=== PATIENT | female | born 1995 | race Caucasian/White ===

== ENCOUNTER 2023-01-21 09:13 | Outpatient (OUT) | payer BC, SELFPAY | END 2023-01-21 09:14 | disposition home or self-care (01) | LOC: US 09:13 | PROVIDERS: Visit Provider Obstetrics & Gynecology | DX: Z53.8 Procedure and treatment not carried out for other reasons (principal) ==

== ENCOUNTER 2023-02-10 10:41 | Outpatient (OUT) | payer BC, SELFPAY ==
[2023-02-10 11:25] LABS: Basophils Percent Auto 0.2 % (0.2-2.0); Eosinophils Absolute Auto 0.1 10^3/uL (0.0-0.7); Eosinophils Percent Auto 0.7 % (0.9-7.0); Hemoglobin 12.3 g/dL (12.0-16.0); Immature Granulocytes Abs Auto 0.06 10^3/uL (0.00-0.03); Immature Granulocytes Pct Auto 0.6 % (0.0-0.5); Lymphocytes Absolute Auto 1.8 10^3/uL (1.2-3.8); Lymphocytes Percent Auto 17.6 % (20.5-60.0); Mean Corpuscular HGB Conc 34.2 g/dL (29.9-35.2); Mean Corpuscular Hemoglobin 29.6 pg (26.7-34.0); Mean Corpuscular Volume 86.7 fL (81.0-99.0); Mean Platelet Volume 8.9 fL (9.5-13.5); Monocytes Absolute Auto 0.8 10^3/uL (0.3-0.8); Monocytes Percent Auto 7.9 % (1.7-12.0); Neutrophils Absolute Auto 7.3 10^3/uL (1.4-6.5); Platelet Count 334 10^3/uL (150-450); Red Blood Count 4.15 10^6/uL (4.20-5.40); Red Cell Distribution Width 12.8 % (11.0-15.0)
[2023-02-10 11:49] LABS: Thyroid Stimulating Hormone 0.974 uIU/mL (0.358-3.740)
[2023-02-10 11:51] LABS: Estimated Average Glucose 100 mg/dL; Glycohemoglobin A1C 5.1 % (4.5-6.2)
[2023-02-11 06:09] LABS: HBsAg Screen Negative (Negative); HCV Ab Non Reactive (Non Reactive); HIV Ab/p24 Ag Screen Non Reactive (Non Reactive); Rubella Antibodies, IgG 5.94 index (Immune >0.99)
[2023-02-11 12:10] LABS: Rapid Plasma Reagin, Quant Non Reactive titer (NonRea<1:1)
== END 2023-02-10 10:42 | disposition home or self-care (01) ==
PROVIDERS: Visit Provider Obstetrics & Gynecology
DX: N91.2 Amenorrhea, unspecified (principal)
CPT/HCPCS: 36415; 83036; 84443; 85025; 86592; 86762; 86803; 86850; 86900; 86901; 87340; 87389

== ENCOUNTER 2023-03-10 11:37 | Outpatient (OUT) | payer BC, SELFPAY ==
--- NOTE | 2023-03-10 11:39 | US_ITS ---
[address] [address] Patient Name: TELLY GARY MRN: [id number] date: 1995 Sex: F Assigned Patient Location: US Current Patient Location: Accession/Order Number: [id number] Exam Date: 03/10/2023 11:39 Report Date: 03/10/2023 15:22 At the request of: LUKE ESTRADA Procedure: US OB >= 14 weeks Fetus EXAMINATION: US OB >= 14 weeks Fetus HISTORY: MISSED MENSES COMPARISON: No relevant comparison available. FINDINGS: Heart Rate: 167.0 bpm Number: 1.0 Position: Variable Amniotic Fluid Volume: Subjectively normal BIOMETRY: BPD: 3.5 cm cm; 16 weeks 6 days HC: 12.9 cmcm; 16 weeks 4 days AC: 10.6 cm cm; 16 weeks 4 days FL: 2.1 cm cm; 16 weeks 1 days EFW: 155.2 grams FL/AC: 19.6 FL/BPD: 59.3 HC/AC: 1.2 GESTATIONAL AGE: Age by EDC: Unknown LMP ANISA by EDC: Age by US: 16 weeks 4 days ANISA by US: 08/21/2023 US/US OB >= 14 weeks Fetus IMPRESSION: 1. Single live intrauterine 16 weeks 4 days gestational age by today's ultrasound. Electronically authenticated by: ESSENCE BLANC Date: 03/10/2023 15:22
== END 2023-03-10 11:38 | disposition home or self-care (01) ==
LOC: US 11:37
PROVIDERS: Visit Provider Obstetrics & Gynecology
DX: Z34.92 Encounter for supervision of normal pregnancy, unspecified, second trimester (principal); Z3A.16 16 weeks gestation of pregnancy
CPT/HCPCS: 76815

== ENCOUNTER 2023-04-06 12:58 | Outpatient (OUT) | payer BC, SELFPAY ==
--- NOTE | 2023-04-06 13:00 | US_ITS ---
[address] [address] Patient Name: TELLY GARY MRN: [id number] date: 1995 Sex: F Assigned Patient Location: US Current Patient Location: US Accession/Order Number: [id number] Exam Date: 04/06/2023 13:06 Report Date: 04/06/2023 21:28 At the request of: LUKE ESTRADA Procedure: US OB anatomy EXAMINATION: US OB anatomy HISTORY: ENCOUNTER FOR ANATOMIC SURVEY Z36.89 COMPARISON: No relevant comparison available. TECHNIQUE: Transabdominal sonographic examination was performed for obstetrical and evaluation. FINDINGS: Number: 1 Heart Rate: 153.0 bpm H.B. /min Amniotic Fluid Volume: Subjectively normal Placental Location: POSTERIOR with lower margin 6.5 cm from os. Cervix Length: 3.4 cm; closed. (Limited evaluation of cervix; patient declined endovaginal imaging.) ANATOMY: Normal Structures -cerebellum, cisterna magna, lateral cerebral ventricles, orbits, midline falx, hard palate, four-chamber heart, RVOT, LVOT, stomach, kidneys, bladder, umbilical cord insertion into abdomen, three-vessel cord, cervical spine, thoracic spine, lumbar spine, sacral spine, right upper extremity, left upper extremity, right lower extremity, left lower extremity. SUBOPTIMALLY SEEN: None ABNORMALITIES: 7 mm choroid plexus cyst. BIOMETRY: BPD: 4.5 cm 19 weeks 5 days HC: 17.2 cm 19 weeks 6 days AC: 14.7 cm 20 weeks 0 days FL: 3.1 cm 19 weeks 5 days EFW:316.1 grams; 36% FL/AC: 21.2 FL/BPD: 69.0 HC/AC: 1.2 GESTATIONAL AGE: Age by EDC: 20 weeks 0 days ANISA by EDC: 08/24/2023 Age by current US: 19 weeks 6 days ANISA by current US: 08/25/2023 US/US OB anatomy IMPRESSION: 1. Single live intrauterine with growth detailed above. 2. Within the lateral ventricle choroid plexus is a 7 mm cyst; nonspecific. Electronically authenticated by: ESSENCE BLANC Date: 04/06/2023 21:28
== END 2023-04-06 12:59 | disposition home or self-care (01) ==
LOC: US 12:59
PROVIDERS: Visit Provider Obstetrics & Gynecology
DX: Z36.89 Encounter for other specified antenatal screening (principal); Z3A.20 20 weeks gestation of pregnancy
CPT/HCPCS: 76805

== ENCOUNTER 2023-05-05 19:33 | Outpatient (REF) | payer BC, SELFPAY ==
--- OUTSIDE RECORDS SUMMARY | 2023-05-05 19:37 | XMS_ITS | CCD ---
Author Name Unknown Address [facility] [place] [address] Organization [facility] Care Team Providers Care Diesel Tractor Operator Name Role Phone LUKE ESTRADA Attending Unavailable COLTEN BALDWIN Attending Unavailable Encounters Encounter Date Encounter Type Care Provider Facility Start: 04-06-2023 End: 04-06-2023 ambulatory LUKE ESTRADA Not Available Start: 03-10-2023 End: 03-10-2023 ambulatory COLTEN BALDWIN Not Available Payers Date Payer Category Payer Unknown [id number] 1995 Unknown [id number] 1995 Unknown [id number] [id number] Summary Purpose Family History No Family History Records Found Advance Directives No Advanced Directives Records Found Additional Source Comments INFORMATION SOURCE (unrecogn ized section and content) DATE CREATED AUTHOR 04/08/2023 [facility] EPIC FOR RECORDS PERTAINING TO PATIENTS WHO ARE OR HAVE BEEN ENROLLED IN A CHEMICAL DEPENDENCY/SUBSTANCEABUSE PROGRAM, SOME INFORMATION MAY BE OMITTED. This clinical summary was aggregated from multiple sources. Caution should be exercised in using it in the provision of clinical care. This summary normalizes information from multiple sources, and as a consequence, information in this document may materially change the coding, format and clinical context of patient data. In addition, data may be omitted in some cases. CLINICAL DECISIONS SHOULD BE BASED ON THE PRIMARY CLINICAL RECORDS. [employer] provides no warranty or guarantee of the accuracy or completeness of information in this document.
[2023-05-10 15:08] LABS: Age Gdln ACOG Testing Note (.); IGP, rfx Aptima HPV ASCU Note (.)
== END 2023-05-05 19:34 | disposition home or self-care (01) ==
LOC: LAB 19:33
PROVIDERS: Visit Provider Physician Assistant
DX: Z01.419 Encounter for gynecological examination (general) (routine) without abnormal findings (principal)
CPT/HCPCS: 87624; G0145

== ENCOUNTER 2023-05-10 09:01 | Outpatient (OUT) | payer BC, SELFPAY ==
--- OUTSIDE RECORDS SUMMARY | 2023-05-10 09:07 | XMS_ITS | CCD ---
Author Name Unknown Address [facility] [place] [address] Organization [facility] Care Team Providers Care Bank Teller Machine Mechanic Name Role Phone LUKE ESTRADA Attending Unavailable NICOLASA, COLTEN Attending Unavailable NICOLASA, COLTEN Attending Unavailable Encounters Encounter Date Encounter Type Care Provider Facility Start: 05-05-2023 End: 05-05-2023 ambulatory COLTEN BALDWIN Not Available Start: 04-06-2023 End: 04-06-2023 ambulatory LUKE ESTRADA Not Available Start: 03-10-2023 End: 03-10-2023 ambulatory COLTEN CRUZEY Not Available Payers Date Payer Category Payer Unknown [id number] 1995 Unknown [id number] 2.16.84 [id number] 1995 Unknown [id number] 2.16.840 .[id number] 1995 Unknown [id number] .[id number] Summary Purpose Family History No Family History Records Found Advance Directives No Advanced Directives Records Found Additional Source Comments INFORMATION SOURCE (unrecogn ized section and content) DATE CREATED AUTHOR 05/06/2023 [facility] EPIC FOR RECORDS PERTAINING TO PATIENTS [...] BE BASED ON THE PRIMARY CLINICAL RECORDS. [employer] [facility]. provides no warranty or guarantee of the accuracy or completeness of information in this document.
[2023-05-10 10:19] LABS: Basophils Percent Auto 0.2 % (0.2-2.0); Eosinophils Absolute Auto 0.1 10^3/uL (0.0-0.7); Eosinophils Percent Auto 0.6 % (0.9-7.0); Hematocrit 30.8 % (36.0-48.0); Hemoglobin 10.2 g/dL (12.0-16.0); Immature Granulocytes Abs Auto 0.05 10^3/uL (0.00-0.03); Immature Granulocytes Pct Auto 0.6 % (0.0-0.5); Lymphocytes Absolute Auto 1.3 10^3/uL (1.2-3.8); Lymphocytes Percent Auto 14.3 % (20.5-60.0); Mean Corpuscular HGB Conc 33.1 g/dL (29.9-35.2); Mean Corpuscular Hemoglobin 30.4 pg (26.7-34.0); Mean Corpuscular Volume 91.7 fL (81.0-99.0); Mean Platelet Volume 8.8 fL (9.5-13.5); Monocytes Absolute Auto 0.6 10^3/uL (0.3-0.8); Monocytes Percent Auto 7.2 % (1.7-12.0); Neutrophils Absolute Auto 6.9 10^3/uL (1.4-6.5); Neutrophils Percent Auto 77.1 % (43.0-75.0); Platelet Count 239 10^3/uL (150-450); Red Blood Count 3.36 10^6/uL (4.20-5.40); Red Cell Distribution Width 13.7 % (11.0-15.0); White Blood Count 8.9 10^3/uL (4.0-11.0)
--- NOTE | 2023-05-10 10:25 | US_ITS ---
[address] [address] Patient Name: TELLY GARY MRN: [id number] date: 1995 Sex: F Assigned Patient Location: US Current Patient Location: US Accession/Order Number: [id number] Exam Date: 05/10/2023 10:45 Report Date: 05/10/2023 11:16 At the request of: LUKE ESTRADA Procedure: US OB follow up EXAMINATION: US OB follow up HISTORY: Choroid Plexus Cyst G93.0 COMPARISON: 04/06/2023 FINDINGS: position: Breech presentation, longitudinal lie Heart rate: 154 bpm Anatomy: Previously identified choroid plexus cyst is no longer visualized US/US OB follow up IMPRESSION: Interval resolution of choroid plexus cyst Electronically authenticated by: MJ PASCAL Date: 05/10/2023 11:16
[2023-05-10 11:11] LABS: Glucose 1 Hour 111 mg/dL
== END 2023-05-10 09:02 | disposition home or self-care (01) ==
PROVIDERS: Visit Provider Obstetrics & Gynecology
DX: G93.0 Cerebral cysts (principal); Z13.1 Encounter for screening for diabetes mellitus
CPT/HCPCS: 36415; 76816; 82950; 85025

== ENCOUNTER 2023-06-02 14:01 | Outpatient (OUT) | payer BC, SELFPAY ==
--- NOTE | 2023-06-02 | ECG_ITS ---
[facility] Test Date: 2023-06-02 Pat Name: TELLY GARY Department: Room: - Gender: Female Career Consultant: : 1995 Requested By: LUKE ESTRADA Order Number: [id number] Reading MD: ABRAHAN ESTRADA Measurements Intervals [place] Rate: 102 P: 56 DC: 143 QRS: 74 QRSD: 108 T: 48 QT: 342 QTc: 447 Interpretive Statements SINUS TACHYCARDIA INCOMPLETE RIGHT BUNDLE BRANCH BLOCK [90+ ms QRS DURATION, TERMINAL R IN V1/V2, 40+ ms S IN I/aVL/V4/V5/V6] ABNORMAL RHYTHM ECG No previous ECG available for comparison Electronically Signed On 06-02-2023 22:18:29 EST by ABRAHAN ESTRADA
--- OUTSIDE RECORDS SUMMARY | 2023-06-02 14:12 | XMS_ITS | CCD ---
Author Name Unknown Address [facility] [place] [address] Organization [facility] Care Team Providers Care Activity Specialist Name Role Phone LUKE ESTRADA Attending Unavailable NICOLASA, COLTEN Attending Unavailable NICOLASA, COLTEN Attending Unavailable Encounters Encounter Date Encounter Type Care Provider Facility Start: 05-05-2023 End: 05-05-2023 ambulatory COLTEN BALDWIN Not Available Start: 04-06-2023 End: 04-06-2023 ambulatory LUKE ESTRADA Not Available Start: 03-10-2023 End: 03-10-2023 ambulatory COLTEN CRUZEY Not Available Payers Date Payer Category Payer Unknown [id number] 1995 Unknown [id number] 2.16.84 [id number] 1995 Unknown [id number] 2.16.840 .[id number] 1995 Unknown [id number] 2.16.840 .[id number] Summary Purpose Family History No Family History Records Found Advance Directives No Advanced Directives Records Found Additional Source Comments INFORMATION SOURCE (unrecogn ized section and content) DATE CREATED AUTHOR 05/06/2023 [facility] EP[facility] FOR RECORDS PERTAINING TO [...] BE BASED ON THE PRIMARY CLINICAL RECORDS. [employer] [facility]. provides no warranty or guarantee of the accuracy or completeness of information in this document.
== END 2023-06-02 14:02 | disposition home or self-care (01) ==
LOC: CARD 14:02
PROVIDERS: Visit Provider Obstetrics & Gynecology
DX: R07.9 Chest pain, unspecified (principal); R55 Syncope and collapse
CPT/HCPCS: 93005

== ENCOUNTER 2023-07-28 20:29 | Outpatient (REF) | payer BC, SELFPAY ==
--- OUTSIDE RECORDS SUMMARY | 2023-07-28 20:35 | XMS_ITS | CCD ---
Author Organization [facility] Care Team Providers Care Pin Chaser Name Role Phone SEAN, LUKE Attending Unavailable NICOLASA, COLTEN Attending Unavailable SEAN, LUKE Attending Unavailable NICOLASA, COLTEN Attending Unavailable SEAN, LUKE Attending Unavailable SEAN, LUKE Attending Unavailable NICOLASA, COLTEN Attending Unavailable Encounters Encounter Date Encounter Type Care Provider Facility Start: 07-13-2023 End: 07-13-2023 ambulatory LUKE SEAN Not Available Start: 06-30-2023 End: 06-30-2023 ambulatory LUKE SEAN Not Available Start: 06-15-2023 End: 06-15-2023 ambulatory COLTEN NICOLASA Not Available Start: 06-02-2023 End: 06-02-2023 ambulatory LUKE SEAN Not Available Start: 05-05-2023 End: 05-05-2023 ambulatory COLTEN NICOLASA Not Available Start: 04-06-2023 End: 04-06-2023 ambulatory LUKE SEAN Not Available Start: 03-10-2023 End: 03-10-2023 ambulatory COLTEN NICOLASA Not Available Payers Date Payer Category Payer Unknown [id number] 1995 Unknown [id number] 2.16.84 [id number] 1995 Unknown [id number] 2.16.84 [id number] 1995 Unknown [id number] 2.16.84 0.1.262849.3.579.2.1259 1994 Unknown [id number] 2.16.84 0.1.226657.3.579.2.1259 1995 Unknown [id number] 2.16.84 0.1.215015.3.579.2.1259 1994 Unknown [id number] 2.16.840 .1.762014.3.579.2.1259 1995 Unknown [id number] 2.16.840 .[id number] Summary Purpose Family History No Family History Records Found Advance Directives No Advanced Directives Records Found Additional Source Comments INFORMATION SOURCE (unrecogn ized section and content) DATE CREATED AUTHOR 07/14/2023 [facility] FOR RECORDS PERTAINING TO PATIENTS WHO ARE [...] BE BASED ON THE PRIMARY CLINICAL RECORDS. [facility] [employer] provides no warranty or guarantee of the accuracy or completeness of information in this document.
== END 2023-07-28 20:30 | disposition home or self-care (01) ==
LOC: LAB 20:29
PROVIDERS: Visit Provider Physician Assistant
DX: Z34.93 Encounter for supervision of normal pregnancy, unspecified, third trimester (principal); Z3A.36 36 weeks gestation of pregnancy
CPT/HCPCS: 87081; 87150; 87186

== ENCOUNTER 2023-08-04 10:38 | Outpatient (OUT) | payer BC, SELFPAY ==
--- NOTE | 2023-08-04 10:40 | US_ITS ---
[address] [address] Patient Name: TELLY GARY MRN: [id number] date: 1995 Sex: F Assigned Patient Location: [facility] Current Patient Location: [facility] Accession/Order Number: [id number] Exam Date: 08/04/2023 10:41 Report Date: 08/04/2023 11:16 At the request of: LUKE ESTRADA Procedure: US OB growth EXAMINATION: US OB growth HISTORY: SIZE INCONSISTENT WITH DATES COMPARISON: Ultrasound OB anatomy 04/06/2023, 05/10/2023 FINDINGS: Heart Rate: 161.0 bpm Number: 1.0 Position: BREECH Amniotic Fluid Volume: 17.1 cm Maximum Vertical Pocket: 5.2 cm BIOMETRY: BPD: 9.4 cm cm; 38 weeks 2 days; 90% HC: 33.8 cmcm; 38 weeks 5 days ; 65% AC: 34.1 cm cm; 38 weeks 0 days; 85% FL: 7.4 cm cm; 37 weeks 5 days; 63% EFW: 3385.5 grams; 80% FL/AC: 21.6 FL/BPD: 78.3 HC/AC: 1.0 GESTATIONAL AGE: Age by EDC: 37 weeks 1 days ANISA by EDC: 08/24/2023 Age by US: 38 weeks 1 day ANISA by US: 08/17/2023 US/US OB growth IMPRESSION: 1. Single live intrauterine with growth detailed above. 2. Floating debris within gestational fluid. Electronically authenticated by: ESSENCE BLANC Date: 08/04/2023 11:16
== END 2023-08-04 10:39 | disposition home or self-care (01) ==
LOC: NOMS 10:39
PROVIDERS: Visit Provider Obstetrics & Gynecology
DX: O26.849 Uterine size-date discrepancy, unspecified trimester (principal); Z3A.38 38 weeks gestation of pregnancy
CPT/HCPCS: 76816

== ENCOUNTER 2023-08-14 04:45 | Observation (INO) | payer BC, SELFPAY ==
--- OUTSIDE RECORDS SUMMARY | 2023-08-14 04:49 | XMS_ITS | CCD ---
Author Organization [facility] Care Team Providers Care Rug Renovator Name Role Phone SEAN, LUKE Attending Unavailable NICOLASA, COLTEN Attending Unavailable SEAN, LUKE Attending Unavailable NICOLASA, COLTEN Attending Unavailable SEAN, LUKE Attending Unavailable SEAN, LUEK Attending Unavailable NICOLASA, COLTEN Attending Unavailable NICOLASA, COLTEN Attending Unavailable SEAN, LUKE Attending Unavailable NICOLASA, COLTEN Attending Unavailable Encounters Encounter Date Encounter Type Care Provider Facility Start: 08-11-2023 End: 08-11-2023 ambulatory COLTEN NICOLASA Not Available Start: 08-04-2023 End: 08-04-2023 ambulatory LUKE SEAN Not Available Start: 07-28-2023 End: 07-28-2023 ambulatory COLTEN NICOLASA Not Available Start: 07-13-2023 End: 07-13-2023 ambulatory LUKE SEAN [...] Available Payers Date Payer Category Payer Unknown [id number] 1995 Unknown [id number] 2.16.84 0.1.527167.3.579.2.1259 1995 Unknown [id number] 2.16.84 0.1.565887.3.579.2.9 1995 Unknown [id number] 2.16.84 0.1.965895.3.579.2.9 1995 Unknown [id number] 2.16.84 0.1.868772.3.579.2.9 1994 Unknown [id number] 2.16.84 0.1.966760.3.579.2.9 1994 Unknown [id number] 2.16.84 0.1.153878.3.579.2.1258 1994 Unknown [id number] 2.16.84 0.1.449355.3.579.2.1258 1994 Unknown [id number] 2.16.84 0.1.428221.3.579.2.9 1994 Unknown [id number] 2.16.840 .1.557663.3.579.2.9 1995 Unknown [id number] 2.16.840 .1.724216.3.579.2.1259 Summary Purpose Family History No Family History Records Found Advance Directives No Advanced Directives Records Found Additional Source Comments INFORMATION SOURCE (unrecogn ized section and content) DATE CREATED AUTHOR 08/12/2023 [facility] FOR RECORDS PERTAINING TO PATIENTS WHO [...] BE BASED ON THE PRIMARY CLINICAL RECORDS. [facility] [employer] provides no warranty or guarantee of the accuracy or completeness of information in this document.
[2023-08-14 05:01] VITALS: BP 116/73; PULSE 121; TEMP 36.8
[2023-08-14 05:28] LABS: Bilirubin Urine NEGATIVE (NEGATIVE); Blood Urine TRACE-I (NEGATIVE); Clarity Urine CLEAR (CLEAR); Color Urine YELLOW (YELLOW); Glucose Urine UA NEGATIVE (NEGATIVE); Ketones Urine NEGATIVE (NEGATIVE); Leukocyte Esterase Urine LARGE (NEGATIVE); Nitrite Urine NEGATIVE (NEGATIVE); Protein Urine NEGATIVE (NEG/TRACE); Specific Gravity Urine 1.015 (1.005-1.025); Urobilinogen Urine 0.2 EU/dL (0.2-1.0); pH Urine 6.5 (5.0-9.0)
[2023-08-14 05:29] LABS: Urine Microscopic Indicated YES
[2023-08-14 05:36] LABS: Amnisure NEGATIVE (NEGATIVE)
[2023-08-14 05:38] LABS: Bacteria Urine LARGE #/HPF (NONE SEEN); Cast Seen? NONE SEEN #/LPF (NONE SEEN); Crystals Seen? None Seen #/HPF (None Seen); Mucus Urine MODERATE (NONE SEEN); Squamous Epithelial Cell Urine FEW #/LPF (NONE/RARE); Urine Culture Indicated YES; WBC Urine 20-50 #/HPF (NONE SEEN)
[2023-08-14] MEDS: NITROFURANTOIN MONOHYD/MAC-CRST 100 MG CAPSULE PO (06:38)
== END 2023-08-14 06:50 | disposition home or self-care (01) ==
PROVIDERS: Admitting Provider Obstetrics & Gynecology; Visit Provider Obstetrics & Gynecology
DX: Z03.71 Encounter for suspected problem with amniotic cavity and membrane ruled out (principal); Z3A.38 38 weeks gestation of pregnancy
CPT/HCPCS: 59025; 81001; 84112; 87086; G0378; G0379

== ENCOUNTER 2023-08-15 04:38 | Inpatient (IN) | payer BC, SELFPAY ==
[2023-08-15] VITALS (37 sets, daily range): BP systolic 107–141; BP diastolic 59–95; PULSE 71–120; TEMP 36.1–37.4; O2SAT 95–100
--- OUTSIDE RECORDS SUMMARY | 2023-08-15 04:44 | XMS_ITS | CCD ---
Author Organization [facility] Care Team Providers Care Stock Roller Name Role Phone SEAN, LUKE Attending Unavailable NICOLASA, COLTEN Attending Unavailable SEAN, LUKE Attending Unavailable NICOLASA, COLTEN Attending Unavailable SEAN, LUKE Attending Unavailable SEAN, LUKE Attending Unavailable NICOLASA, COLTEN Attending Unavailable NICOLASA, [...] Available Payers Date Payer Category Payer Unknown [id number] 1995 Unknown [id number] 2.16.84 0.1.328517.3.579.2.1259 1995 Unknown [id number] 2.16.84 0.1.625636.3.579.2.9 1994 Unknown [id number] 2.16.84 0.1.986694.3.579.2.9 1994 Unknown [id number] 2.16.84 0.1.426925.3.579.2.9 1994 Unknown [id number] 2.16.84 0.1.958007.3.579.2.9 1994 Unknown [id number] 2.16.84 0.1.370282.3.579.2.1258 1994 Unknown [id number] 2.16.84 0.1.870432.3.579.2.1258 1994 Unknown [id number] 2.16.84 0.1.471928.3.579.2.9 1994 Unknown [id number] 2.16.840 .1.666305.3.579.2.9 1994 Unknown [id number] 2.16.840 .1.879256.3.579.2.1259 Summary Purpose Family History No Family History Records Found Advance Directives No Advanced Directives Records Found Additional Source Comments INFORMATION SOURCE (unrecogn ized section and content) DATE CREATED AUTHOR 08/12/2023 [facility] FOR RECORDS PERTAINING TO PATIENTS WHO [...] BE BASED ON THE PRIMARY CLINICAL RECORDS. [facility] [employer] provides no warranty or guarantee of the accuracy or completeness of information in this document.
--- NOTE | 2023-08-15 05:29 | US_ITS ---
[address] [address] Patient Name: TELLY GARY MRN: [id number] date: 1995 Sex: F Assigned Patient Location: [facility] Current Patient Location: [facility] Accession/Order Number: [id number] Exam Date: 08/15/2023 06:10 Report Date: 08/15/2023 06:50 At the request of: SYED HENDERSON Procedure: US OB limited EXAM: US OB limited HISTORY: VERIFY PRESENTATION COMPARISON: Ultrasound OB growth 08/04/2023 TECHNIQUE: Transabdominal ultrasound. FINDINGS: Presentation: Cephalic Heart rate: 162 bpm GA: 38 weeks 5 days ANISA: 08/24/2023 US/US OB limited IMPRESSION: 1. Single live intrauterine in cephalic presentation. Electronically authenticated by: ESSENCE BLANC Date: 08/15/2023 06:50
[2023-08-15] MEDS: 0.9 % SODIUM CHLORIDE 1,000 ML 125 ML IV (05:45)
[2023-08-15 06:34] LABS: Hemoglobin 11.7 g/dL (12.0-16.0); Mean Corpuscular HGB Conc 33.4 g/dL (29.9-35.2); Mean Corpuscular Hemoglobin 29.8 pg (26.7-34.0); Mean Corpuscular Volume 89.3 fL (81.0-99.0); Mean Platelet Volume 10.8 fL (9.5-13.5); Platelet Count 215 10^3/uL (150-450); Red Blood Count 3.92 10^6/uL (4.20-5.40); Red Cell Distribution Width 13.3 % (11.0-15.0); White Blood Count 9.2 10^3/uL (4.0-11.0)
[2023-08-15] MEDS: AMPICILLIN SODIUM 2,000 MG in 0.9 % SODIUM CHLORIDE 100 ML 200 MG IV (06:40)
--- NOTE | 2023-08-15 08:45 | PC.NURSE ---
Suicide risk screening completed with RN and patient in room. Patient responses flag high risk for suicide d/t frequent suicidal ideations/plans, as frequent as a few times a week. Patient states that ideations have been a bit better throughout the end of the , but have remained persistent. Patient states she has struggled with depression since she was in [employer] [place], and feels as if doctor's have never really heard her when she says she is struggling. She states she feels invalidated unheard regarding her mental health. When prompted, patient states she has told her about her feelings, but he says things like, Why do you say stupid stuff like that or No you don't want to kill yourself. Patient states she does currently feel much better this morning d/t being scheduled for her c/s and ready to meet her baby. Denies any current suicidal ideations, and states she feels safe at home. Support system consists of , multiple [id number], and has 3 brothers, but her parents are not very involved. 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 Patient states she has not reached out before to schedule with telehealth services because I just couldn't bring myself to do it. Reassurance and support provided to patient. Patient remains in a safe location, RN will remain observant of patient's behavior throughout the day and will speak with Dr. Mullins regarding plan of care for mental health services. e learning manager notified of patient risk level, social service consult placed.
[2023-08-15] MEDS: CEFAZOLIN SODIUM/DEXTROSE,ISO 2 GM/50 ML PIGGYBACK IV ×2 (09:07→16:39)
[2023-08-15] MEDS: CITRIC ACID/SODIUM CITRATE 30 ML SOLUTION ORACIT SHOHL'S SOLN PO (09:07)
[2023-08-15] MEDS: METOCLOPRAMIDE HCL 10 MG/2 ML VIAL IVP (09:07)
[2023-08-15] MEDS: FAMOTIDINE/PF 20 MG/2 ML VIAL IV (09:07)
[2023-08-15 09:31] LABS: Amphetamine Screen Urine NEGATIVE (NEGATIVE); Barbiturates Screen Urine NEGATIVE (NEGATIVE); Benzodiazepines Screen Urine NEGATIVE (NEGATIVE); Buprenorphine Screen Urine NEGATIVE (NEGATIVE); Cannabinoid Screen Urine NEGATIVE (NEGATIVE); Cocaine Screen Urine NEGATIVE (NEGATIVE); Methadone Screen Urine NEGATIVE (NEGATIVE); Methamphetamines Screen Urine NEGATIVE (NEGATIVE); Opiate Screen Urine NEGATIVE (NEGATIVE); Oxycodone Screen Urine NEGATIVE (NEGATIVE); Phencyclidine Screen Urine NEGATIVE (NEGATIVE); Tricyclic Antidepressant Urine NEGATIVE (NEGATIVE)
--- NOTE | 2023-08-15 09:45 | PC.NURSE ---
Physician notified of suicide risk screening upon admission, states he will discuss with patient to see what services she will require.
--- NOTE | 2023-08-15 10:28 | PM.ONB ---
Brief Operative Note Date of procedure: 08/15/23 Pre-op diagnosis general: iup at 38wks, srom, pt refusing trial of labor Post-op diagnosis: same as pre-op Procedure: NAME OF PROCEDURE: [ section ] PROCEDURE: Patient was taken back to the Operating Room where she was given a spinal anesthesia with Duramorph without difficulty. She was prepped and draped in the normal sterile fashion. A Pfannenstiel skin incision was then made 2 cm above the symphysis pubis and carried down to underlying rectus fascia using a Bovie. The fascia was incised in the midline and extended laterally using Hein scissors. Two Valeria clamps were placed on the superior aspect of the fascia and dissected off the underlying rectus muscles. The same was performed on the inferior aspect as well. The muscles were then in the midline. Peritoneum was identified and entered bluntly. The peritoneum was then extended superiorly and inferiorly with good visualization of the bladder. The bladder blade was inserted. A low transverse incision was made on the patient's uterus and extended laterally digitally. The was then delivered atraumatically after the bladder blade was removed in the cephalic position. The cord was clamped and cut. Cord blood was obtained. The infant was handed off to awaiting team. The patient's placenta was spontaneously delivered. The uterus was then exteriorized. The uterus was cleared of all clots and debris. The bladder blade was reinserted. The patient's uterine incision was closed using #0 Vicryl in a running lock fashion. Excellent hemostasis was assured. The uterus was then returned to the patient's abdomen. The patient's abdomen was copiously irrigated using warm saline. Peritoneal gutters were cleared of all clots and debris. Again excellent hemostasis was assured. The patient's peritoneum was closed using 3-0 Vicryl in a running fashion. The patient's fascia was closed using #0 Vicryl in a running fashion. The patient's skin was closed using 4-0 Vicryl subcuticularly. The patient tolerated the procedure well. Sponge, lap, and needle counts were correct x2. The patient was taken to the Recovery Room in stable condition. Anesthesia: spinal Surgeon: Monroe Mullins Bellows Assembler: Sumi Estrella Estimated blood loss (mL): 575 Pathology: none sent Condition: stable Disposition: floor Urinary Catheter Management Urinary Catheter Management Urethral: Cath placed during this visit: yes Urethral indwelling: No Insertion date: 08/15/23 Insertion time: 08:28
--- NOTE | 2023-08-15 10:29 | PM.OBPRCCS ---
Procedure Pre-op/Post-op diagnoses: Pre-Op/Post-Op Diagnoses Operation Date: 08/15/23 08:45 <No data on this case meets the specified criteria> Procedure: Procedures Operation Date: 08/15/23 08:45 Actual Procedure Side Surgeon p Not Applicable Monroe Mullins DO Physician Office Nurse: Sumi Estrella Estimated blood loss (mL): 575 Disposition: floor Anesthesia type: Spinal
[2023-08-15] MEDS: BUPIVACAINE HCL 0.25% PF 25 MG/10 ML VIAL 20 ML INJ (10:34)
[2023-08-15] MEDS: BUPIVACAINE LIPOSOME/PF 266 MG/13.3 ML VIAL INJ (10:34)
[2023-08-15] MEDS: 0.9 % SODIUM CHLORIDE 1,000 ML 1000 ML IV (11:00)
[2023-08-15] MEDS: CITALOPRAM HYDROBROMIDE 20 MG TABLET PO (12:29)
--- NOTE | 2023-08-15 16:35 | RESP.RT ---
done per nursing
[2023-08-15] MEDS: KETOROLAC TROMETHAMINE 30 MG/ML VIAL IVP ×2 (16:39→23:23)
[2023-08-15] MEDS: ACETAMINOPHEN 500 MG TABLET 1000 MG PO (19:25)
[2023-08-16] VITALS (8 sets, daily range): BP systolic 109–120; BP diastolic 60–71; PULSE 61–81; TEMP 36.6–37
[2023-08-16] MEDS: ACETAMINOPHEN 500 MG TABLET 1000 MG PO ×2 (03:03→18:35)
--- NOTE | 2023-08-16 07:51 | P.OBPN_ITS ---
OB - PN: Subj Subjective Patient comments: no complaints T[place]umseh status: doing well [place] feeding status: exclusively bottle feeding Exam Constitutional Vital Signs, click to edit/add: Last Vital Signs Temp 98.3 F 08/16/23 05:25 Pulse 67 08/16/23 05:25 Resp 12 08/16/23 05:25 BP 111/61 08/16/23 05:25 Pulse Ox 95 08/15/23 13:20 O2 Del Method Room Air 08/16/23 05:25 Documenting provider has reviewed patient's vital signs: yes Common normals: no apparent distress and oriented x3 General appearance: cooperative Orientation/consciousness: Yes awake, Yes oriented to person, Yes oriented to place and Yes oriented to time HENMT Common normals: normocephalic Eye Common normals: EOMs intact bilaterally Neck & C-Spine Common normals: full ROM General: normal visual inspection Lymph Lymphatic: no lymphadenopathy noted Chest Common normals: inspection of chest normal Respiratory Common normals: normal respiratory effort Effort & inspection: able to speak in complete sentences Cardio Common normals: regular rate Rate: regular rate Rhythm: regular rhythm GI Common normals: Normal to inspection, nondistended, normoactive bowel sounds pre sent Inspection: normal to inspection Palpation: soft Common normals: no CVA tenderness Back & Pelvis Common normals: no CVA tenderness Lumbar spine/lower back: normal to inspection Extremity Common normals: normal to inspection General: normal exam except as noted Neuro Common normals: oriented x3 Sensorium/orientation: awake, alert, oriented to person, oriented to place and oriented to time Psych Common normals: cooperative Attitude: calm Activity/motor behavior: appropriate eye contact Speech: normal speech Mood and affect: other (history of depression and suicidal ideations, social service consult placed) Urinary Catheter Management Urinary Catheter Management Urethral: Cath placed during this visit: yes, but has since been removed by the nurse Urethral indwelling: No Insertion date: 08/15/23 Insertion time: 08:28 Removal date: 08/15/23 Removal time: 21:15 OB - PN: A/P Plan - day: 1 Plan: routine postop care Time Spent with Patient Time: Total time spent is greater than 50% in coordination of care (as documented) at patient's floor/unit and/or counseling patient: Total time spent with greater than 50% in coordination of care (as documented) at patient's floor/unit and/or counseling patient: less than 15 minutes
[2023-08-16] MEDS: DOCUSATE SODIUM 100 MG CAPSULE PO ×2 (08:04→21:48)
[2023-08-16] MEDS: CITALOPRAM HYDROBROMIDE 20 MG TABLET PO (08:04)
[2023-08-16] MEDS: IBUPROFEN 400 MG TABLET 800 MG PO ×3 (08:04→22:57)
--- NOTE | 2023-08-16 09:15 | PC.NURSE ---
RN sits at bedside for in depth conversation with patient regarding mental health history and current plan for care. [facility] mental health hotline available and patient states she would like to speak with them, today or tomorrow. reassurance and support provided. patient states she is feeling better knowing that other people know about this now. RN engages patient and in discussion regarding plan of care going forward. states patient has struggled with mental health issues as long as he has known her, upwards of 8 years. Patient is seemingly better currently than she has been in the past, according to . states patient's family has a strong history of mental health issues, and patient has been very suicidal in the past, even up to through the first trimester but has been doing much better lately. Patient states she would like to speak to the social service department today to see what services her insurance will cover. RN offers to call hotline with patient, patient declines at this time. Mateo Darden updated on patient current status.
--- NOTE | 2023-08-16 15:30 | SWNOTE1 ---
SW consulted for mental health, medium risk for suicide. SW spoke with nursing prior to assessing pt. Pt has voiced she feel invalidated by doctors and that they do no listen. Pt has relayed to nursing she has had suicidal ideations throughout her life. She had voiced plans in regards to drinking a certain amount of alcohol and taking certain drugs or even wrecking her car on way to work. Pt is a pharmacist.Nursing did let SW know that the father of baby has been providing most of care, pt did some skin on skin today and fed baby once. SW met with pt to discuss potential dc needs and mental health concerns. Pt voices at this time she is feeling well, sore from the , but well. They do have everything they need at home for baby. SW did ask pt how she is feeling overall, mentally? She voiced she feels like she is in a better place right now. She struggled the first trimester with being nauseous and not feeling well. She also voiced she was just worried during . In 3rd trimester she voiced she was feeling better. She stated now that baby is here, she is feeling better as well. SW did ask her when her last thought of suicide was and she voiced prior to . During conversation, father of baby was sleeping on couch. Also pt's mother in law and father in law came in to room. At that time SW advised pt that SW would come back later today. SW came back in room and it was just pt and baby in room. Pt was holding baby while baby was sleeping. SW and pt spoke about her suicidal thoughts in past. She voiced she started to feel depressed when she was in [employer] high and her parents were going through a divorce. She had attempted to talk to counselors, but she stated she never really felt it worked. SW asked if she ever had a plan for suicide. She did voice that she had looked up the amount of alcohol someone would have to drink, she also thought of taking various medications she had at her home, and she voiced she drives an hour for work everyday and she had thought of crashing on purpose. SW asked if she ever took action on committing suicide. She voiced she did not. SW asked if she had any thoughts of suicide right now? Pt voiced she does not. Pt started Celexa yesterday and is going to continue this. SW asked what we could do to assist her? She stated her work has a telehealth that is free and she is going to look in to setting up an appointment for soon. SW advised for her to try to do this tonight and SW will check back with her tomorrow to make sure an apt. is set. SW did ask about her support system? Pt voiced her in laws are very supportive. Her own family is not as good of support, sometimes her mom. SW advised pt to reach Rojelio or her in laws when she is feeling down. SW asked if Rojelio, pt's , is aware of the suicidal thought, she voiced yes he is. SW did speak with her about post depression, pt voiced understanding. SW did speak with her about bonding with her baby as well. Pt did voice she was not sure how she was going to feel at first. She stated she thinks he is so sweet now and she has bonded more and more. SW asked pt if she would like to call [facility] Mental Health hotline with SW, pt again voiced she is going to contact her telehealth from work and get something scheduled. SW to update nursing and check back tomorrow.
--- NOTE | 2023-08-16 16:27 | SWNOTE1 ---
SW, nursing, and pt all in room and confirmed that the plan is for pt to schedule telehealth visit through her employer and SW to check back in tomorrow. At this time pt does not want to call [facility] hotline, but the number will be provided to pt at discharge.
--- NOTE | 2023-08-16 17:00 | PC.NURSE ---
RN offers to call mental health hotline with patient, patient declines at this time. offered to assist with researching telehealth resources with her insurance, patient declines but states she would like those services set up before she leaves the hospital. Discussed medication management with [place], and close follow up in the office per Dr. Mullins. Physician requests follow up in 1 week and 2 weeks minimum to check in with patient. Patient verbalizes understanding. Patient remains safe in room, supportive at bedside. bonding with baby encouraged, patient declines to hold infant at this time.
[2023-08-17] MEDS: ACETAMINOPHEN 500 MG TABLET 1000 MG PO ×3 (03:25→22:13)
--- NOTE | 2023-08-17 08:12 | PM.OBPN ---
OB - PN: Subj Subjective Patient comments: no complaints and pain well controlled [place] status: doing well Exam Constitutional Vital Signs, click to edit/add: Last Vital Signs Temp 98.4 F 08/16/23 23:30 Pulse 73 08/16/23 23:27 Resp 16 08/16/23 23:30 BP 120/60 08/16/23 23:27 Pulse Ox 95 08/15/23 13:20 O2 Del Method Room Air 08/16/23 23:30 Documenting provider has reviewed patient's vital signs: yes Common normals: no apparent distress Respiratory Common normals: normal respiratory effort and clear to auscultation bilaterally Cardio Common normals: regular rate and regular rhythm GI Common normals: Normal to inspection, nondistended, normoactive bowel sounds present Extremity Common normals: no clubbing, cyanosis or edema and no calf tenderness Urinary Catheter Management Urinary Catheter Management Urethral: Cath placed during this visit: yes, but has since been removed by the nurse Urethral indwelling: No Insertion date: 08/15/23 Insertion time: 08:28 Removal date: 08/15/23 Removal time: 21:15 OB - PN: A/P Plan - day: 2 Plan: routine postop care, discharge home and other (fu 1wk) Time Spent with Patient Time: Total time spent is greater than 50% in coordination of care (as documented) at patient's floor/unit and/or counseling patient: Total time spent with greater than 50% in coordination of care (as documented) at patient's floor/unit and/or counseling patient: less than 15 minutes
[2023-08-17] MEDS: IBUPROFEN 400 MG TABLET 800 MG PO ×2 (08:42→16:01)
[2023-08-17] MEDS: DOCUSATE SODIUM 100 MG CAPSULE PO ×2 (08:42→20:20)
[2023-08-17] MEDS: CITALOPRAM HYDROBROMIDE 20 MG TABLET PO (08:42)
[2023-08-17 08:45] VITALS: BP 121/57; PULSE 91; TEMP 36.4
--- NOTE | 2023-08-17 10:21 | SWNOTE1 ---
SW stopped back in to check on pt. Nursing in room as well. Pt did schedule a telehealth appointment through her work and it is for 12:00 on 08/22/23. Pt's in room as well. Pt voiced she is feeling well, used a heating pad overnight due to pain. She voiced the baby was out with nurse some and then [facility] time as well. Pt was feeding/burping baby when SW went in. SW did ask pt how she is feeling emotionally. Pt voiced she felt she was doing well. SW asked how the bonding was going with baby? Pt feels it is going alright at this time. SW again voiced each mom and baby is different and to not pressure herself. ARACELIS also asked pt's how he was doing, he voiced he was doing well at this time. Pt did smile during interaction with SW and nursing. She stated they were excited about possibility of going home today, but baby has to stay another day to make sure he is eating well. ARACELIS did offer to follow up again with pt tomorrow to see how she is doing. SW to check back in tomorrow.
--- NOTE | 2023-08-17 10:53 | PC.NURSE ---
0730: PATIENT HOLDING BABY AND OFFERINGBREAST MILK PER BOTTLE. BABY UNSWADDLED TO AWAKEN FOR FEEDING BY ASSISTANT GM OF CONTENT & DELIVERY AND PARENTS INSTRUCTED ON HOW TO AWAKEN FOR FEEDING. DIAPER CHANGED. TELLY SMILING AND ENGAGED WITH CONVERSATION AND DIRECT EYE CONTACT. FEEDING SCHEDULES DISCUSSED AND PLAN TO REMAIN IN HOSPITAL TO WORK ON FEEDING AND BABY CARE. CIRCUMCISION PLAN FOR TOMORROW TO WORK ON FEEDS TODAY.
[2023-08-17 15:57] VITALS: BP 119/60; PULSE 76; TEMP 35.7
--- NOTE | 2023-08-18 00:17 | PM.OBPN ---
OB - PN: Subj Subjective Patient comments: no complaints and pain well controlled [place] status: doing well Exam Constitutional Vital Signs, click to edit/add: Last Vital Signs Temp 96.3 F L 08/17/23 15:57 Pulse 76 08/17/23 15:57 Resp 16 08/17/23 16:19 BP 119/60 08/17/23 15:57 Pulse Ox 95 08/15/23 13:20 O2 Del Method Room Air 08/17/23 16:19 Documenting provider has reviewed patient's vital signs: yes Common normals: no apparent distress Respiratory Common normals: clear to auscultation bilaterally Cardio Common normals: regular rate and regular rhythm GI Common normals: Normal to inspection, nondistended, normoactive bowel sounds present Extremity Common normals: no calf tenderness Urinary Catheter Management Urinary Catheter Management Urethral: Cath placed during this visit: yes, but has since been removed by the nurse Urethral indwelling: No Insertion date: 08/15/23 Insertion time: 08:28 Removal date: 08/15/23 Removal time: 21:15 OB - PN: A/P Plan - day: 3 Plan: routine postop care, discharge home and other (fu 1wk) Time Spent with Patient Time: Total time spent is greater than 50% in coordination of care (as documented) at patient's floor/unit and/or counseling patient: Total time spent with greater than 50% in coordination of care (as documented) at patient's floor/unit and/or counseling patient: less than 15 minutes
[2023-08-18 00:23] VITALS: BP 116/61; PULSE 72
[2023-08-18 00:24] VITALS: BP 116/61; PULSE 72; TEMP 36.9
[2023-08-18] MEDS: IBUPROFEN 400 MG TABLET 800 MG PO ×3 (00:25→12:26)
[2023-08-18 08:14] VITALS: BP 117/70; PULSE 64
[2023-08-18 08:15] VITALS: TEMP 36.8
[2023-08-18] MEDS: DOCUSATE SODIUM 100 MG CAPSULE PO (08:17)
[2023-08-18] MEDS: CITALOPRAM HYDROBROMIDE 20 MG TABLET PO (08:17)
[2023-08-18] MEDS: ACETAMINOPHEN 500 MG TABLET 1000 MG PO (08:17)
== END 2023-08-18 14:20 | disposition home or self-care (01) | DRG 788 ==
PROVIDERS: Obstetrics & Gynecology; Admitting Provider Obstetrics & Gynecology; Visit Provider Obstetrics & Gynecology
PROC: 10D00Z1 Extraction of Products of Conception, Low, Open Approach (ICD-10-PCS; CPT 59514; principal; 2023-08-15 08:45)
DX: O42.92 Full-term premature rupture of membranes, unspecified as to length of time between rupture and onset of labor (principal); O75.82 Onset (spontaneous) of labor after 37 completed weeks of gestation but before 39 completed weeks gestation, with delivery by (planned) cesarean section; O99.824 Streptococcus B carrier state complicating childbirth; Z3A.38 38 weeks gestation of pregnancy; Z37.0 Single live birth; Z86.59 Personal history of other mental and behavioral disorders
CPT/HCPCS: 36415; 51702; 64488; 76815; 80307; 85027; 86850; 86900; 86901; 94667; 94668; 96374; 96375; J1094